=== PATIENT | female | born 1990 | race Caucasian/White ===

== ENCOUNTER 2018-06-23 09:34 | Emergency (ER) | payer SELFPAY ==
[~2018-06-23] VITALS: Ht 160 cm; Wt 113.6 kg
[2018-06-23 09:39] VITALS: Ht 160 cm; Wt 113.6 kg
[2018-06-23] MEDS ORDERED: PAXIL20 MG PO (09:40)
[2018-06-23] MEDS ORDERED: TESSALON PERLE100 MG PO (11:24)
[2018-06-23] MEDS ORDERED: PREDNISONE10 MG PO (11:24)
[2018-06-23] MEDS ORDERED: DOXYCYCLINE HY100 M2 PO (11:24)
[2018-06-23 11:52] VITALS: BP 132/80
== END 2018-06-23 11:53 | disposition home or self-care (01) ==
LOC: D.ER 09:34
DX: J40 Bronchitis, not specified as acute or chronic (principal); Z87.09 Personal history of other diseases of the respiratory system

== ENCOUNTER 2018-07-01 09:14 | Emergency (ER) | payer MEDICAID ==
[~2018-07-01] VITALS: Ht 160 cm; Wt 113.6 kg
[~2018-07-01 09:14] MED LIST: DOXYCYCLINE HY100 M2 PO; PAXIL20 MG PO; PREDNISONE10 MG PO; TESSALON PERLE100 MG PO
[2018-07-01 09:19] VITALS: Ht 160 cm; Wt 113.6 kg
[2018-07-01] MEDS ORDERED: THORAZINE50 MG PO ×2 (09:38)
[2018-07-01 09:44] VITALS: BP 132/088
== END 2018-07-01 09:45 | disposition home or self-care (01) ==
LOC: D.ER 09:14
DX: F20.9 Schizophrenia, unspecified (principal)

== ENCOUNTER 2018-07-09 22:01 | Emergency (ER) | payer MEDICAID ==
[~2018-07-09] VITALS: Ht 160 cm; Wt 113.6 kg
[~2018-07-09 22:01] MED LIST changes: +THORAZINE50 MG PO
[2018-07-09 22:09] VITALS: Ht 160 cm; Wt 113.6 kg
[2018-07-09 22:28] LABS: APPEARANCE CLEAR (CLEAR); BILIRUBIN NEGATIVE (NEGATIVE); COLOR YELLOW (YELLOW); GLUCOSE NEGATIVE (NEGATIVE); HCG URINE NEGATIVE (NEGATIVE); KETONE NEGATIVE (NEGATIVE); NITRITE NEGATIVE (NEGATIVE); PROTEIN NEGATIVE (NEGATIVE); SPECIFIC GRAVITY 1.025 (1.005-1.020); UROBILINOGEN NORMAL (NORMAL)
[2018-07-09 22:29] LABS: EPITHELIAL CELLS 0-5 /hpf (0-5); WHITE CELLS - URINE OCC /hpf (0-5)
[2018-07-09 22:32] LABS: UDS - AMPHET NEGATIVE QUAL (NEGATIVE); UDS - BARB NEGATIVE QUAL (NEGATIVE); UDS - BENZO NEGATIVE QUAL (NEGATIVE); UDS - COCAINE NEGATIVE QUAL (NEGATIVE); UDS - OPIATE NEGATIVE QUAL (NEGATIVE); UDS - PCP NEGATIVE QUAL (NEGATIVE); UDS - THC NEGATIVE QUAL (NEGATIVE)
[2018-07-09 22:46] LABS: BASOPHILS 0.1 % (0-2); EOSINOPHILS 0.5 % (0-7); HEMATOCRIT 33.6 % (36.0-48.0); HEMOGLOBIN 10.6 g/dL (12-16); IMMATURE GRANULOCYTES 0.7 % (0-5); LYMPHOCYTES 17.3 % (15-50); MCH 25.4 pg (26.0-34.0); MCHC 31.5 g/dL (31.0-37.0); MCV 80.4 fL (80.0-100.0); MEAN PLATELET VOLUME 8.5 fL (7.4-10.4); MONOCYTES 9.5 % (2-11); NEUTROPHILS 71.9 % (40-80); PLATELET COUNT 225 10x3/uL (130-400); RBC 4.18 10x6/uL (4.00-5.40); RDW 15.1 % (11.5-14.5); WBC 12.1 10x3/uL (4.8-10.8)
[2018-07-09 23:02] LABS: ALBUMIN 3.3 g/dL (3.4-5.0); ALKALINE PHOSPHATASE 74 U/L (46-116); ALT (SGPT) 35 U/L (10-68); BILIRUBIN - TOTAL 0.14 mg/dL (0.2-1.3); CALC OSMOLALITY 287 mosm/kg (275-300); CALCIUM 8.6 mg/dL (8.5-10.1); CARBON DIOXIDE 26.6 mmol/L (21.0-32.0); CHLORIDE - SERUM 105 mmol/L (98-107); CREATININE - SERUM 0.7 mg/dL (0.6-1.3); GLUCOSE 133 mg/dL (74-106); POTASSIUM - SERUM 4.3 mmol/L (3.5-5.1); SODIUM 142 mmol/L (136-145); UREA NITROGEN 20 mg/dL (7-18); eGFR NON AFRICAN AMERICAN > 90 mL/min (90-120)
[2018-07-10 00:56] VITALS: BP 130/90
== END 2018-07-10 00:57 ==
LOC: D.ER 22:01
PROVIDERS: Family Medicine
DX: F20.9 Schizophrenia, unspecified (principal); R45.851 Suicidal ideations